=== PATIENT | female | born 1950 | race Asian ===

== ENCOUNTER → 2021-07-14 13:38 | Outpatient (CLI) | payer MEDICARE, OTHER, SELFPAY ==
--- NOTE | 2021-07-14 | DI.MG.S_ITS ---
UNILATERAL RIGHT DIGITAL DIAGNOSTIC MAMMOGRAM 3D/2D WITH ADDITIONAL VIEWS: 07/14/2021 CLINICAL: Additional evaluation requested from prior study. Comparison is made to exams dated: 05/18/2021 mammogram, 01/31/2019 mammogram, and 01/31/2018 mammogram - [facility]. The tissue of right breast is heterogeneously dense. This may lower the sensitivity of mammography. There are grouped fine and small round calcifications in the right breast at 10 o'clock middle depth. No other significant masses or calcifications are seen in the breast. IMPRESSION: SUSPICIOUS OF MALIGNANCY The grouped calcifications in the right breast are suspicious of malignancy. A stereotactic biopsy is recommended. Findings and recommendations were discussed with the patient in person by Dr. Raza at time of exam. This exam was interpreted at Station ID: [id number]. NOTE: For mammograms, a report in lay terms will be sent to the patient. Approximately 15% of breast malignancies will not be visualized mammographically. In the management of a palpable breast mass, a negative mammogram must not discourage biopsy of a clinically suspicious lesion. Electronically Signed By: Sigrid little/:07/14/2021 14:28:03 letter sent: Biopsy Required ACR BI-RADS Category 4: Suspicious abnormality 3344F
== END ==
PROVIDERS: Referring Provider Family Medicine; Visit Provider Family Medicine
DX: R92.8 Other abnormal and inconclusive findings on diagnostic imaging of breast (principal); R92.1 Mammographic calcification found on diagnostic imaging of breast
CPT/HCPCS: 77065; G0279

== ENCOUNTER → 2021-10-12 09:46 | Outpatient (CLI) | payer MEDICARE, OTHER, SELFPAY ==
[2021-10-12 12:04] LABS: COVID19 -Nasal RAPID Negative (Negative)
== END ==
PROVIDERS: PCP Family Medicine; Visit Provider Surgery
DX: Z20.822 Contact with and (suspected) exposure to COVID-19 (principal); Z01.812 Encounter for preprocedural laboratory examination
CPT/HCPCS: 87635; C9803

== ENCOUNTER 2021-10-13 07:06 | Day surgery (SDC) | payer MEDICARE, OTHER, SELFPAY ==
[2021-10-12 14:29] VITALS: BMI 22.0
[2021-10-13] VITALS (7 sets, daily range): BP systolic 100–130; BP diastolic 51–69; PULSE 68–72; RESP 11–17; TEMP 36.1–36.8; O2SAT 97–100; BMI 22.6
--- NOTE | 2021-10-13 | DI.MG.S_ITS ---
MAMMOGRAPHY GUIDED WIRE LOCALIZATION RIGHT BREAST WITH POST MAMMOGRAPHIC IMAGING AND RADIOGRAPHIC SPECIMEN IMAGING- POST-EXCISIONAL BIOPSY: 10/13/2021 CLINICAL: Right breast mass. Correlation is made to exams dated: 07/30/2021 stereotactic biopsy - [facility], 07/14/2021 mammogram - [facility], 05/18/2021 mammogram, and 01/31/2019 mammogram - [facility]. A wire localization using mammography guidance was performed for the area of calcifications located in the Upper outer right breast posterior depth. The skin was prepped in the usual manner. The localization was approached from the craniocaudal aspect. A wire was inserted into the targeted area under mammography guidance. Post placement mammographic imaging was obtained. IMPRESSION: WIRE LOCALIZATION Wire localization for the area of calcifications in the right breast was successful. This exam was interpreted at Station ID: [id number]. Stu Linda M.D. fx/:10/13/2021 12:07:38
--- NOTE | 2021-10-13 | DI.MG.S_ITS ---
SPECIMEN: 10/13/2021 CLINICAL: Right breast specimen. Correlation is made to exams dated: 10/13/2021 [facility], 07/30/2021 specimen, and 07/30/2021 stereotactic biopsy - [facility]. The surgical specimen contains the biopsy clip and targeted calcifications. IMPRESSION: SPECIMEN The surgical specimen contains the targeted calcifications. This exam was interpreted at Station ID: [id number]. Stu olivares/jocelyne:10/13/2021 12:09:08
--- NOTE | 2021-10-13 | PATH_ITS ---
[facility] Accession Number: [id number] . 01 Material submitted: . breast - RIGHT BREAST TISSUE . 01 Clinical history: . SDC . 01 Diagnosis: Right Breast, Wire Localized Excision: Atypical ductal hyperplasia. Focal atypical lobular hyperplasia. Calcifications present associated with non neoplastic tissue and atypical lobular hyperplasia. Biopsy site changes present. Negative for in-situ, or invasive carcinoma. [facility] 10/16/2021 1221 Local . 01 Electronically signed: . Angelita Smallwood MD, Pathologist NPI- [id number] . 01 Gross description: . Received in formalin, labeled with the patient's name and right breast tissue, and consists of a 60 g, unoriented fragment of breast with localization wire measuring 6.4 x 5.3 x 4.0 cm. One surface is relatively smooth and flat and is possibly consistent with the deep surface. The presumed deep surface is inked black while the remaining margins are inked blue. The specimen is serially sectioned into 12 slices to reveal a firm, white, ill-defined area within slices 2-12, measuring 4.8 x 3.5 x 2.3 cm. This firm area grossly approaches the presumed posterior and other margins. The metal localization wire terminates within slice 6. A ribbon-shaped biopsy clip is found within slice 10 and is 1.1 cm from the closest margin. The remaining tissue is yellow, soft fibroadipose tissue with fibrous tissue occupying less than 10% of the cut surface. No additional lesions are identified. [employer] sections are submitted as follows: A1: [employer]ige [employer] Inspector slice 1 perpendicular. A2: [employer] Inspector slice 2. A3: [employer] Inspector slice 3. A4: [employer]ige [employer] Inspector slice 4. A5: [employer]ige [employer] Inspector slice 5. A6: Greige Goods Inspector slice 6 to include localization wire termination point. A7: [employer]ige [employer] Inspector slice 7. A8: [employer]ige [employer] Inspector slice 8. A9: [employer]ige [employer] Inspector slice 9. A10: Greige Goods Inspector slice 10 to include biopsy site. A11: [employer]ige [employer] Inspector slice 11. A12: [employer]ige Goods Inspector slice 12; perpendicular. The specimen was removed on 10-13-21. Time in formalin not provided, cold ischemic time cannot be calculated. The total fixation time is less than 72 hours. ([id number]) /FRJacky 10/14/2021 2016 Local . 01 Microscopic: . Immunohistochemical stains were performed to characterize the cells of interest in blocks A4 and A11. The control stain showed appropriate reactivity. . A4: E-cadherin : Absent in cells of interest. A11: E-cadherin : Present in cells of interest. . Interpretation: The abscence of E-cadherin expression, combined with the morphologic appearance in A4 is consistent with atypical lobular hyperplasia. . * This test was developed and its performance characteristics determined by [employer]. It has not been cleared or approved by the U.S. Food and Drug Administration. The FDA has determined that such clearance or approval is not necessary. This test is used for clinical purposes. It should not be regarded as investigational or for research. . 01 Pathologist provided ICD-10: N60.89 . 01 CPT . 718963, J55875 Specimen Comment: A courtesy copy of this report has been sent to [phone] Performed at: 01 [facility] [address] [place] [address] [id number] MD Simon Trinh MD Phone: [phone]
[2021-10-13] MEDS: LACTATED RINGERS 1,000 ML 42 ML IV (09:25)
--- NOTE | 2021-10-13 10:44 | PM.HP.1 ---
History of Present Illness History of Present Illness Date Patient Seen: 10/13/21 Time Patient Seen: 10:44 Chief complaint: SDC Narrative: Oscar is a 71-year-old woman with a recent diagnosis of atypical ductal hyperplasia of the right breast. She had a wire localization performed today. See office note from August for more detail. 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 Breast cancer, left Degenerative disc disease, lumbar Glucose intolerance Osteoarthritis of shoulders, bilateral Osteoporosis Vitamin D deficiency Surgical History (Updated 10/12/21 @ 14:33 by Jayda Andre RN) History of mastectomy Hx of repair of left rotator cuff Hx of repair of right rotator cuff Family & Social History Social History: household members spouse Tobacco & Substance use: Smoking Status Never smoker alcohol intake current alcohol intake frequency holiday/special occasion Substance Use Type does not use Meds Home Medications and Allergies Home Medications Medication Instructions Recorded Confirmed Type cholecalciferol (vitamin D3) 25 25 mcg PO DAILY 08/24/21 10/13/21 History mcg (1,000 unit) capsule lidocaine 5 % topical patch 3 patch topical DAILY 08/24/21 10/12/21 History (Lidoderm) alendronate 70 mg tablet 70 mg PO QWEEK 10/12/21 10/13/21 History Allergies Allergy/AdvReac Type Severity Reaction Status Date / Time No Known Drug Allergies Allergy Unverified 08/24/21 09:56 Exam Vital Signs (past 8 hours): - 10/13/21 07:22 Temperature 97.4 F L Pulse Rate 70 Respiratory Rate 17 Blood Pressure 130/67 Pulse Oximetry 100 Oxygen Delivery Method Room Air Oxygen Delivery Method Room Air Narrative Exam Narrative: There is a cup protecting the wire of the right breast Assessment & Plan Assessment and plan (1) Atypical ductal hyperplasia of right breast: Status: Acute Plan We will perform a wire localized right breast lumpectomy. She understands risks benefits and rationale wishes to proceed. Time Spent With Patient Critical Care time: I spent a total of [] minutes of critical care time on this patient's care today; this time is exclusive of procedural time.
[2021-10-13] MEDS: LIDOCAINE 1% W/EPI 20 ML INJ (11:18)
--- NOTE | 2021-10-13 11:27 | SUR.OPER ---
Supine on padded OR bed, head on pillow, arms secured on padded arm boards at <90 degrees abduction, legs uncrossed, safety belt at thigh, tape over blanket over lower legs. Position approved by surgeon and anesthesia
--- NOTE | 2021-10-13 12:11 | PM.OP.1 ---
Operative Date/Time/Diagnoses Date of procedure: 10/13/21 Time of procedure: 12:11 Pre-op diagnosis: Right breast atypical ductal hyperplasia Post-op diagnosis: same Procedure & Clinicians Procedure: Right breast lumpectomy with wire localization Same procedure as scheduled: Yes Surgeon: Santos West Operative Notes Procedure in detail: The patient had a wire localization performed at Radiology prior to arrival in the perioperative area. The patient was given preoperative antibiotic. The patient was brought to the operating room, placed on the table in the supine position, general anesthesia was induced. Arms were abducted on arm boards. The right breast was prepped and draped in the usual fashion. A time-out was performed. We made a 10 cm incision just inferior to the wire. We created flaps superior and inferior to the incision and then dissected down to the chest wall keeping the wire within the center portion of specimen. We reached pectoral fascia at the deepest aspect of the dissection. The specimen was excised with the wire intact. The specimen was sent to Radiology for specimen mammogram. We then irrigated both wound cavities initially with sterile saline. Local anesthetic was injected into the muscle layer of the lumpectomy site. A few bleeders were cauterized. Once the wound cavities were hemostatic we injected some local anesthetic into the dermis and closed both incisions in layers using multiple interrupted 3-0 Vicryl dermal sutures followed by a running 4-0 Monocryl subcuticular closure. Radiology called the OR reporting that the clip and the microcalcifications were visualized within the specimen. Steri-Strips were applied followed by dry gauze and a breast binder. EBL: 10 mL Post-operative Condition: stable Disposition: PACU
--- NOTE | 2021-10-13 12:33 | SUR.PHASEI ---
Addendum entered by Homa Ho R.N. 10/13/21 13:10: 1310: Pt spouse reported that the preferred pharmacy would not be able to fill pt prescription for 24 hour, and requesting written prescription. Notified Dr. West, who wrote written RX for pt to fill at pharmacy of choice. This investment underwriter called preferred pharmacy to verify pt e-script was received, which it was, and was told it would be ready any minute. Made pt aware, who was in agreement to just draft roller picker the filled RX at the original pharmacy chosen. Written RX torn up and placed in shredding bin with SHYANN Lawler, Aysha RN and SHYANN Yun witness. Original Note: 1230: Pt A&Ox4, denies any pain at surgical site, does report mild chronic left hip pain that is now tolerable with heat application. VSS, taking PO without any difficulties, ready and desires to discharge home now. Pt ready to transition to phase 2 report given to SHYANN Lawler using SBAR with time alllowed for questions. Will hand off care now.
== END 2021-10-13 13:07 | disposition home or self-care (01) ==
PROVIDERS: PCP Nurse Practitioner; Referring Provider Surgery; Visit Provider Surgery
PROC: (CPT 19125; principal; 2021-10-13 11:15)
DX: N60.91 Unspecified benign mammary dysplasia of right breast (principal)
CPT/HCPCS: 19125; 19281; 76098; C1819; J1100; J2405; J2704; J3010